=== PATIENT | male | born 1985 | race Caucasian/White ===

== ENCOUNTER 2021-10-24 14:33 | Emergency (ER) | payer SELFPAY ==
[~2021-10-24] VITALS: Ht 170.2 cm; Wt 84.0 kg
[2021-10-24 14:54] VITALS: BP 101/64
== END 2021-10-24 15:36 | disposition home or self-care (01) ==
LOC: ER 14:33
DX: F11.10 Opioid abuse, uncomplicated (principal)
CPT/HCPCS: 99281